=== PATIENT | female | born 1975 | race Two or more races ===

== ENCOUNTER 2018-05-09 10:49 | Emergency (ER) | payer MEDICAID, OTHER ==
[~2018-05-09] VITALS: Ht 154.9 cm; Wt 66.0 kg
[~2018-05-09 10:49] MED LIST: GLYB5TAB3 PO; SITA1TBM7 PO
[2018-05-09 11:06] VITALS: BP 100/63
[2018-05-09 11:30] LABS: BASOPHILS # (AUTO) 0.06 x10^3/uL (0-0.1); BASOPHILS % (AUTO) 1 % (0-1); EOSINOPHILS # (AUTO) 0.14 x10^3/uL (0-0.4); EOSINOPHILS % (AUTO) 2 % (1-7); LYMPHOCYTES % (AUTO) 31 % (22-44); MD NO; MEAN CORPUSCULAR HEMOGLOBIN 26.5 pg (27.0-34.8); MEAN CORPUSCULAR HGB CONC 32.1 g/dL (32.4-35.8); MEAN CORPUSCULAR VOLUME 82.8 fL (80-100); MEAN PLATELET VOLUME 8.7 fL (7.4-10.4); MONOCYTES # (AUTO) 0.71 x10^3/uL (0.2-0.8); MONOCYTES % (AUTO) 10 % (2-9); NEUTROPHILS # (AUTO) 4.24 x10^3/uL (1.8-6.8); NEUTROPHILS % (AUTO) 57 % (42-75); PLATELET COUNT 330 x10^3/uL (130-400); RED BLOOD COUNT 5.77 x10^6/uL (3.82-5.3); RED CELL DISTRIBUTION WIDTH 13.2 % (9.6-15.2)
[2018-05-09 11:37] LABS: ALBUMIN 4.3 g/dL (3.4-5.0); ANION GAP 6 mmol/L (5-15); CHLORIDE 103 mmol/L (98-107)
[2018-05-09 11:38] LABS: CREATININE 0.61 mg/dL (0.55-1.02)
--- NOTE | 2018-05-09 11:49 | NUR ---
PT ARRIVES TO ED WITH SOB AND NOT FEEELING WELL FOR ABOUT 1 WEEK. PT IS CONCERNED BECUASE SHE IS NOT HAVING ANY IMPROVMENT. PT DENIES ANY BLOOD IN STOOL OR COUGHING UP COLORED PHEGLM. PT CONNECTED TO MONITORS AND CALL LIGHT IN REACH. RESPIRATIONS ARE EQUAL AND UNLABORED. CONNECTED TO ALL MONITORS.
--- NOTE | 2018-05-09 12:42 | NUR ---
CHART UP FOR RECHECK AT THIS TIME.
[2018-05-09] MEDS ORDERED: MECLIZINE CHEWABLE 25 MG TAB ONE (12:48)
[2018-05-09] MEDS ORDERED: MECLIZINE CHEWABLE 25 MG TAB PO ONE (13:00)
--- NOTE | 2018-05-09 13:08 | NUR ---
PT MEDICATED FOR DAY AT THIS TIME.
--- NOTE | 2018-05-09 13:59 | NUR ---
P GIVEN UA CUP FOR SAMPLE.
[2018-05-09 14:45] LABS: HCG UR SG 1.024 (1.003-1.030)
[2018-05-09 14:59] LABS: MICROSCOPIC NOT IND
[2018-05-09 15:03] LABS: CULTURE INDICATED? NO
--- NOTE | 2018-05-09 15:30 | NUR ---
Patient/Caregiver given discharge instructions and they have confirmed that they understand the instructions. Patient ambulatory with steady gait.
== END 2018-05-09 15:59 | disposition home or self-care (01) ==
LOC: ED 14:23
DX: H81.10 Benign paroxysmal vertigo, unspecified ear (principal); R06.00 Dyspnea, unspecified; R53.1 Weakness; R11.2 Nausea with vomiting, unspecified; E11.9 Type 2 diabetes mellitus without complications
CPT/HCPCS: 36415; 71045; 80048; 81003; 81025; 82040; 85025; 93005; 99284